=== PATIENT | male | born 1960 | race American Indian/Alaskan Native ===

== ENCOUNTER 2016-10-28 09:37 | Outpatient (CLI) | payer OTHER ==
--- NOTE | 2016-10-28 10:52 | XRay Report ---
PA and lateral chest: There is right apical scarring. The lungs otherwise appear generally clear. The heart is normal in size. Compared to prior examination in July 2001 and the findings appear unchanged. Impression: Right apical scarring. No acute findings.
== END 2016-10-28 09:38 | disposition home or self-care (01) ==
LOC: SPVIMAG 09:37
DX: R05 Cough (principal)
CPT/HCPCS: 71020